=== PATIENT | male | born 1960 | race Caucasian/White ===

== ENCOUNTER 2021-02-12 07:48 | Day surgery (SDC) | payer OTHER ==
[~2021-02-12] VITALS: Ht 193 cm; Wt 127.3 kg
--- NOTE | 2021-02-12 09:37 | NUR ---
02/12/21 0937 Aaron Hsieh INDIGO CARMINE INJECTED PER DR ROGERS FOR POLYPECTOMY
== END 2021-02-12 10:05 | disposition home or self-care (01) ==
LOC: ORSCSDS 07:48
PROVIDERS: Internal Medicine Gastroenterology
PROC: 0DBH8ZX Excision of Cecum, Via Natural or Artificial Opening Endoscopic, Diagnostic (ICD-10-PCS; principal; 2021-02-12 09:00)
PROC: 0DBM8ZX Excision of Descending Colon, Via Natural or Artificial Opening Endoscopic, Diagnostic (ICD-10-PCS; principal; 2021-02-12 09:00)
DX: Z12.11 Encounter for screening for malignant neoplasm of colon (principal); D12.4 Benign neoplasm of descending colon; K64.8 Other hemorrhoids
CPT/HCPCS: 88305; J2704; J7120

== ENCOUNTER → 2025-03-28 | Outpatient (CLI) | payer OTHER ==
[2025-04-05 23:01] LABS: OVA AND PARASITE,FECAL INTERP Negative (Negative)
== END ==
LOC: LAB 20:55 → LAB SHORT 20:55 → LAB FUT 03-24 13:40
PROVIDERS: Naturopath
DX: R73.03 Prediabetes (principal); C95.90 Leukemia, unspecified not having achieved remission; R19.7 Diarrhea, unspecified
CPT/HCPCS: 87177; 87209

== ENCOUNTER → 2025-03-29 | Outpatient (CLI) | payer OTHER ==
[2025-04-05 23:01] LABS: OVA AND PARASITE,FECAL INTERP Negative (Negative)
== END ==
LOC: LAB 20:53 → LAB SHORT 20:53
PROVIDERS: Naturopath
DX: R19.7 Diarrhea, unspecified (principal); R73.03 Prediabetes; C95.90 Leukemia, unspecified not having achieved remission
CPT/HCPCS: 87177; 87209